=== PATIENT | female | born 1985 | race Two or more races ===

== ENCOUNTER 2020-09-26 19:26 | Outpatient (REF) | payer OTHER, SELFPAY ==
--- NOTE | ~2020-09-26 | MR_ITS ---
EXAMINATION: MR BRAIN WITHOUT CONTRAST CLINICAL INFORMATION: 35-year-old followup MS. COMPARISON: 10/04/2019 MRI TECHNIQUE: Multiplanar multisequence MR imaging of the brain was done without IV contrast. FINDINGS: Brain Volume: Mild diffuse generalized brain parenchymal volume loss slightly out of proportion to the patient's age, stable in appearance from previous exam and consistent with chronic MS. Structural: No malformations. Brain and Meninges: Redemonstrated are numerous white matter lesions in the supratentorial white matter involving the subcortical, deeper periventricular and juxtaventricular white matter bilaterally without restricted diffusion, similar in appearance to the previous study with no significant progression. There is a small patchy zone of T2 hyperintensity in the dorsal midbrain slightly to the left of midline approaching the periaqueductal region which is stable in appearance. Some T1 dark lesions are seen in the deep periventricular regions bilaterally, stable in appearance. Gradient-echo imaging demonstrates no evidence for hemorrhage, hemosiderin staining or abnormal mineral deposition. No extra-axial fluid collections, space-occupying process or mass effect are identified. Lesions along the corpus callosum and callosal septal interface are stable. Ventricles and Subarachnoid Spaces: The ventricular system and subarachnoid spaces are stable in appearance when compared to the previous exam without hydrocephalus. Orbital Structures: The visualized orbital structures appear grossly unremarkable within the limitations of the study, unchanged in appearance. Vascular: Normal signal voids are seen in the visualized major intracranial vessels. Sinuses and Osseous Structures: Minimal mucosal thickening in the maxillary sinuses is unchanged. Osseous marrow signal appears within normal limits and stable in appearance. MR/MR head/brain wo con IMPRESSION: 1. 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 2. Stable small patchy lesion in the dorsal midbrain to the left of midline.
== END 2020-09-26 19:27 | disposition home or self-care (01) ==
LOC: HO.MRI 19:26
PROVIDERS: Visit Provider Psychiatry & Neurology Neurology
DX: G35 Multiple sclerosis (principal)
CPT/HCPCS: 70551